=== PATIENT | male | born 1985 | race Caucasian/White ===

== ENCOUNTER 2021-12-29 16:17 | Emergency (ER) | payer SELFPAY ==
[~2021-12-29] VITALS: Ht 167.6 cm; Wt 81.6 kg
[2021-12-29 16:24] VITALS: BP_SYST 120
--- NOTE | 2021-12-29 16:24 | NUR ---
Patient triaged and placed in ER HALLWAY. VSS and patient appears in no acute distress at this time. Accompanied by BLS TRANSPORT, awaiting available bed, and MD notified of need for MSE.
--- NOTE | 2021-12-29 16:40 | NUR ---
PATIENT LEFT OF AMBULANCE [facility]. LEFT WITHOUT BEING SEEN REPORTS HAS NO COMPLAINTS AND WANTS TO LEAVE. PATIENT AMBULATED OUT OF ER AMBULANCE DOOR WITH STEADY GAIT. NO ACUTE DISTRESS NOTED.
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
== END 2021-12-29 16:40 | disposition left against medical advice (07) ==
LOC: SED 16:17
DX: R00.0 Tachycardia, unspecified (principal); Z53.21 Procedure and treatment not carried out due to patient leaving prior to being seen by health care provider